=== PATIENT | female | born 1975 | race Caucasian/White ===

== ENCOUNTER 2016-11-10 17:39 | Emergency (ER) | payer OTHER ==
[~2016-11-10 17:39] MED LIST: ALBUTEROL 0.5ML; ALBUTEROL MININEB; ALBUTEROL1.25 MG/3; ALBUTEROL17 GM; ALBUTEROL17 GM IN; ALBUTEROL17 GM INH; ALL DAY ALLERGY10 M3; ALLERGY RELIEF10 M1 PO; ANEXSIA 7.5/3251 TA1 PO; ATORVASTATIN CA10 MG; BACLOFEN10 MG PO; BACTROBAN15 GM TOP; BACTROBAN22 GM; BREO ELLIPTA 11 EACH; BREO ELLIPTA 21 EACH; BRIMONIDINE TART5 ML OP; BUPROPION XL150 MG; BUSPAR PO; BUSPAR15 M1; BUSPAR15 M1 PO; CARAFATE1 G PO; CELEBREX PO; CELEXA20 MG; CIPRO PO; CITALOPRAM HBR40 M1; CLOBETASOL 0.0560 GM TOP; COLESTIPOL HCL1 G PO; DARVOCET-N 1001 TA1 PO; DELTASONE20 MG; DESYREL50 M1 PO; DEXTROAMPHETAMI10 M5 PO; DICLOFENAC; DOXYCYCLINE HY100 M3 PO; FIORICET 50-321 EACH PO; FLEXERIL PO; FLEXERIL10 MG PO; FLOMAX0.4 M1 PO; FLONASE16 GM; FOLIC ACID PO; FOLIC ACID1 MG; GABAPENTIN300 M2; GABAPENTIN300 M2 PO; GABAPENTIN800 MG; INVOKANA100 MG; JANUVIA100 MG; JANUVIA25 MG; LINZESS145 MCG; LIPITOR40 MG; LORTAB 5/500 TA1 TA1 PO; LORTAB 7.5-5001 TAB PO; MEDROL PO; METFORMIN HCL500 M1 PO; METFORMIN PO; MOBIC15 MG PO; MONTELUKAST SOD10 MG; MUCINEX FAST-M1 EAC1; NABUMETONE PO; NEURONTIN300 MG PO; NEURONTIN600 MG; NEURONTIN600 MG PO; NEURONTIN800 MG PO; OMEPRAZOLE40 M1; ONDANSETRON ODT4 MG; PERCOCET5/325 PO; PHENERGAN PO; PHENERGAN25 MG PO; PREDNISONE PO; PREDNISONE10 MG PO; PRILOSEC20 MG PO; QVAR; QVAR7.3 G1 IH; QVAR7.3 G1 INH; RANITIDINE HCL150 M1 PO; RIZATRIPTAN10 M1; ROBAXIN 750750 MG PO; SEROQUEL25 MG PO; SINGULAIR PO; SOMA PO; SOMA250 MG PO; SPIRONOLACTONE100 MG; SPIRONOLACTONE50 MG; SUDAFED PO; TOPAMAX PO; TOPAMAX25 MG; VIBRAMYCIN100 M1 PO; VICODIN 5/500 T1 TAB PO; VICODIN ES 7.51 EAC1; VISTARIL PO; VITAMIN B 12 SHOT INJ; VITAMIN B-1000 MCG/1; VOLTAREN75 MG PO; WELLBUTRIN SR150 MG; WELLBUTRIN XL PO; WELLBUTRIN XL150 M2; WELLBUTRIN XL150 MG PO; ZANAFLEX; ZOCOR10 MG PO; ZOFRAN ODT4 MG SL; ZYLOPRIM PO; ZYLOPRIM100 MG; ZYRTEC10 M2
[2016-11-10] MEDS ORDERED: CIPRO XR 500 M500 MG PO (18:02)
[2016-11-10] MEDS ORDERED: DERMACORT1 GM (18:02)
[2016-11-10 20:06] LABS: BASOPHIL% 0.4 % (0-2.5); EOSINOPHIL# 0.3 X10e3 (0-0.7); EOSINOPHIL% 3.2 % (0.0-7.0); HEMATOCRIT 46.5 % (35.0-45.0); HEMOGLOBIN 16.3 gm/dL (12.0-16.0); LYMPHOCYTE# 1.1 X10e3 (1.0-3.5); LYMPHOCYTE% 13.7 % (17.0-45.0); MEAN CELL VOLUME 89.7 FL (83-96); MEAN CORPUSCULAR HEMOGLOBIN 31.5 PG (28-34); MEAN CORPUSCULAR HGB CONC 35.1 g/dL (30-36); MEAN PLATELET VOLUME 10.1 FL (6.5-11.5); MONOCYTE# 0.4 X10e3 (0-1.0); MONOCYTE% 4.9 % (3.0-12.0); NEUTROPHIL# 6.4 X10e3 (1.5-7.1); NEUTROPHIL% 77.8 % (40-75); PLATELET COUNT 154 X10e3 (140-420); RED BLOOD COUNT 5.18 X10e (3.90-5.30); RED CELL DISTRIBUTION WIDTH 12.5 % (11.0-15.5); WHITE BLOOD COUNT 8.2 X10e3 (4.0-10.5)
[2016-11-10 20:10] LABS: DIFF IND NO
[2016-11-10 20:17] LABS: INR 1.2
[2016-11-10 20:24] LABS: ALBUMIN SERUM 4.5 g/dL (3.5-5.0); BILIRUBIN, DIRECT 0.2 mg/dL (0.0-0.2); BILIRUBIN,INDIRECT 0.9 mg/dL (0.0-0.9); BILIRUBIN,TOTAL 1.1 mg/dL (0.2-2.0); BUN/CREATININE RATIO 13.33; CALCIUM SERUM 9.1 mg/dL (8.4-10.2); CREATININE SERUM 0.9 mg/dL (0.6-1.4); POTASSIUM 4.1 mmol/L (3.5-5.1); PROTEIN TOTAL SERUM 7.3 g/dL (6.0-8.3)
[2016-11-10 20:26] LABS: PARTIAL THROMBOPLASTIN TIME 29.9 SECONDS (25.6-38.1)
== END 2016-11-10 21:15 | disposition home or self-care (01) ==
LOC: SED 17:39
PROVIDERS: Nurse Practitioner Family
DX: L03.115 Cellulitis of right lower limb (principal); J45.909 Unspecified asthma, uncomplicated; J44.9 Chronic obstructive pulmonary disease, unspecified; F17.210 Nicotine dependence, cigarettes, uncomplicated; M79.7 Fibromyalgia; M10.9 Gout, unspecified; Z98.890 Other specified postprocedural states; Z79.899 Other long term (current) drug therapy; Z88.0 Allergy status to penicillin; Z88.2 Allergy status to sulfonamides; Z88.1 Allergy status to other antibiotic agents; Z88.5 Allergy status to narcotic agent; Z88.8 Allergy status to other drugs, medicaments and biological substances; W57.XXXA Bitten or stung by nonvenomous insect and other nonvenomous arthropods, initial encounter
CPT/HCPCS: 36415; 80048; 80076; 85025; 85610; 85730; 90471; 90715; 99283

== ENCOUNTER → 2016-12-14 | Outpatient (CLI) | payer OTHER ==
[~2016-12-14] MED LIST changes: +CIPRO XR 500 M500 MG PO; +DERMACORT1 GM
--- NOTE | ~2016-12-14 | US128 ---
[id number] [facility] [address] [place], [place] [address] [id number] O MR#: [id number] Acc #: [id number] NAME: BILL CERRATO : 1975 SEX: F STUDY DATE/TIME: 12/14/2016 13:18 UNIT: [facility]US ROOM: STUDY DESCRIPTION: Thyroid Attending Physician: Jonathan Bella M.D. Referring Physician: Jonathan Bella M.D. Ordering Physician: Jonathan Bella M.D. Primary Care Physician: Elton Sanders M.D. MEDICAL IMAGING REPORT This report is preliminary unless electronic signature is present EXAM Ultrasound thyroid, 12/14/2016. HISTORY 41-year-old female referred for followup of multinodular thyroid goiter. Benign fine needle aspiration of dominant right thyroid lobe nodule November 2014. TECHNIQUE Kraft-scale ultrasound imaging of the thyroid gland along with limited color-flow Doppler imaging. FINDINGS THYROID SIZE Right Lobe: 6.7 x 2.7 x 2.8 cm. Left Lobe: 5.9 x 1.8 x 2.4 cm. Thyroid isthmus thickness 0.6 cm. THYROID FINDINGS Generalized thyroid enlargement, greater on the right. Diffusely heterogeneous thyroid parenchyma with numerous scattered tiny, mostly cystic nodules in both thyroid lobes, nearly all of which measure less than 10 mm in size. There is a dominant, uniformly solid, ovoid nodule in the right mid thyroid lobe measuring 2.7 cm in maximum longitudinal dimension. This is unchanged in size and appearance since 06/21/2015 and 11/05/2014 and previously underwent benign FNA procedure. No new or enlarging thyroid lesion is demonstrated. IMPRESSION 1. Mild generalized thyroid enlargement, greater on the right. 2. Multinodular thyroid goiter, stable since prior exams. 3. Stable dominant, uniformly solid nodule right mid thyroid lobe measuring up to 2.7 cm, unchanged since 2015 and 2014, previously assessed by benign FNA procedure. 4. No new or enlarging thyroid lesion is demonstrated. Consider followup thyroid ultrasound examination in 1-2 years. Dictated by... Alexander Wheeler M.D. THIS IS AN ELECTRONICALLY VERIFIED REPORT Alexander Wheeler M.D. at 12/14/2016 11:07 PM PAMELA/jack TD: 12/14/2016 21:38 JOB #: [id number] MEDICAL IMAGING REPORT Page 1 of 1 COPY
== END | disposition home or self-care (01) ==
LOC: CGUS 12:47
DX: E04.2 Nontoxic multinodular goiter (principal)
CPT/HCPCS: 76536